=== PATIENT | male | born 1965 | race Caucasian/White ===

== ENCOUNTER 2017-01-14 16:12 | Emergency (ER) | payer MEDICAID ==
[2017-01-14 17:22] LABS: Hematocrit 45.2 % (42.0-52.0); Mean Cell Volume 94.6 fl (78-100); Mean Corpuscular Hemoglobin 29.3 pg (27-31); Mean Platelet Volume 9.9 fl (6.0-9.5); Neutrophil # 2.8 K/mm3 (1.3-6.0); Platelet Count 121 K/mm3 (150-450); Red Blood Count 4.78 M/mm3 (4.7-6.0); Red Cell Distribution Width 18.4 % (11.5-14.0); White Blood Count 4.7 K/mm3 (4.0-10.5)
--- NOTE | 2017-01-14 17:42 | ERNOTE ---
Dyspnea - General Presenting Symptoms: shortness of breath Time Seen by Provider: 01/14/17 17:22 Source: patient Exam Limitations: no limitations - Immun/Allergies/Home Medications Immunizations: IMMUNIZATION HX Immunizations Up to Date Yes History of Influenza Vaccine No Hx Pneumococcal Vaccination No Allergies/Adverse Reactions: Allergies metformin Adverse Reaction (Verified 01/14/17 16:41) Home Medications: HOME MEDICATIONS Acitretin [Soriatane] 25 mg PO DAILY 01/14/17 [Last Taken Unknown] Benztropine Mesylate [Cogentin] 0.5 mg PO BID 01/14/17 [Last Taken Unknown] Furosemide [Lasix] 80 mg PO BID #30 tablet 01/14/17 [Last Taken Unknown] OXcarbazepine [Trileptal] 300 mg PO DAILY 01/14/17 [Last Taken Unknown] Pioglitazone HCl [Actos] 45 mg PO DAILY 01/14/17 [Last Taken Unknown] Potassium Chloride [K-Dur] 20 meq PO DAILY #30 tablet.sa 01/14/17 [Last Taken Unknown] Pravastatin Sodium [Pravachol] 20 mg PO DAILY 01/14/17 [Last Taken Unknown] Ranitidine HCl [Zantac] 150 mg PO BID 01/14/17 [Last Taken Unknown] Ziprasidone HCl [Geodon] 60 mg PO BID 01/14/17 [Last Taken Unknown] predniSONE [Prednisone] 3 tab PO DAILY #12 tab 01/14/17 [Last Taken Unknown] - History of Present Illness Narrative: Patient has a history of COPD and sleep apnea. He states that he is supposed to wear oxygen all the time but usually just wears it at night. Over the last two days he has been wearing it all day though as well as using his breathing treatments more as he was coughing more and got short of breath with coughing, not so much with exertion, denies any fever, mild URI symptoms, has been exposed to URI. He does not wear a CPAP and is still smoking.. 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 Denies: out of meds Modifying Factors - (Improves): Reports: albuterol, oxygen Modifying Factors (Worsens): Reports: coughing, lying down Associated Symptoms-Dyspnea: Reports: cough. Denies: fever/chills, sweating Prior Treatment: Reports: recently seen. Denies: currently on antibiotics Review of Systems - Review of Systems Constitutional: Absent: fever, chills EYE: Absent: vision changes ENT: Present: nose congestion. Absent: ear pain, sore throat Respiratory: Present: See HPI, shortness of breath, cough Cardiology: Absent: chest pain Gastrointestinal/Abdominal: Absent: nausea, vomiting, diarrhea, abdominal pain Genitourinary: Present: no symptoms reported Musculoskeletal: Absent: muscle pain Neurological: Absent: headache, weakness, numbness - Patient's Past Medical History Patient History - Medical: Anxiety, Diabetes Type 2, Depression, Obesity Patient History - Cardiac/Respiratory: COPD, Hyperlipidemia, Home O2 Use, Sleep Apnea Patient History - Cancer: No Hx of Cancer Patient History - Surgical Procedures: Colonoscopy, T & A, ENT - Social History Smoking Status: Current every day smoker Cigarettes Packs Per Day: 1 Have you smoked in the past 12 months: Yes - Immunizations Immunizations Up to Date: Yes Hx Pneumococcal Vaccination: No History of Influenza Vaccine: No Physical Exam - Physical Exam General Appearance: Present: wd/wn, alert, no apparent distress, obese Eye Exam: Normal inspection: bilateral, PERRL: bilateral Ears, Nose, Throat: Present: normal ENT inspection, normal pharynx Neck: Present: normal inspection Respiratory: Present: no respiratory distress, no accessory muscle use, lungs clear, decreased breath sounds Cardiovascular/Chest: Present: regular rate, rhythm, no murmur Gastrointestinal/Abdominal: Present: nondistended, soft Extremity Exam: Present: pedal edema - +1 Neurological Exam: Present: alert, oriented, normal mood/affect, no motor/ sensory deficits Skin Exam: Present: normal color, warm/dry, other - skin changes on both lower legs consistent with stasis dermatitis ED Progress - Results and Orders Patient's Lab Results:: I have reviewed the patient's lab results. - Vital Signs Patient's Vital Signs:: I have reviewed the patient's vital signs. Vital Signs: Vital Signs 01/14/17 01/14/17 01/14/17 16:35 17:08 17:25 Pulse Rate 75 74 77 Respiratory 13 20 Rate Blood Pressure 131/82 103/43 O2 Sat by Pulse 83 L 92 Oximetry - EKG EKG: NSR, RBBB - incomplete, other - no acute changes EKG read: Interp. by me - X-Ray X-Ray #1 X-Ray: chest - venous congestion, cardiomegaly, no definite infiltrate Interpretation: Interp. by me - Progress/Reassessment Chief Complaint: Dyspnea Progress Note-Subjective: 01/14/17 18:45 ABG done at 1liter, O2 sat 89-91% reviewed chart from [place] patient comfortable discussed results with patient and family, will treat for CHF and COPD patient does not go to bed till 03:00, will give lasix po now Departure Clinical Impression: COPD (chronic obstructive pulmonary disease) Qualifiers: COPD type: unspecified COPD Qualified Code(s): J44.9 - Chronic obstructive pulmonary disease, unspecified CHF exacerbation Qualifiers: Congestive heart failure type: unspecified congestive heart failure type Qualified Code(s): I50.9 - Heart failure, unspecified - Departure Disposition: Home self-care Condition: Good Instructions: Chronic Obstructive Pulmonary Disease Exacerbation, [id number] , Heart Failure, [id number] Additional Instructions: increase your lasix to 80mg twice a day take the prednisone, make sure to check your blood sugar as it might be elevated with this use your oxygen at 2liter at all times (except when smoking) and your breathing treatments as needed call your doctor in the morning for a follow up appointment Referrals: Kennedi Farrell MD [Primary Care Provider] - Prescriptions: Furosemide [Lasix] 80 mg PO BID #30 tablet Potassium Chloride [K-Dur] 20 meq PO DAILY #30 tablet.sa predniSONE [Prednisone] 3 tab PO DAILY #12 tab
[2017-01-14 17:48] LABS: Anion Gap 5.8 mmol/L (6.8-13.8); BUN/Creatinine Ratio 14.1 (9.0-21.6); Bilirubin, Total 0.8 mg/dL (0.0-1.1); Ca. Corrected For Albumin 9.1 mg/dL (8.4-10.2); Calcium * 8.6 mg/dL (7.9-10.9); Carbon Dioxide 36.9 mmol/L (24-32.6); Potassium 3.7 mmol/L (3.4-4.6); Total Protein 7.9 gm/dL (6.2-8.2)
--- OUTSIDE RECORDS SUMMARY | 2017-01-14 18:34 | XMS REPORT | Continuity of Care Document ---
:1965 Author Organization [facility] ([facility]) Address [address] [place] [address] Phone [phone] Care Team Providers Name Role Phone Kennedi Farrell Primary Care Provider [phone] Source Comments This disclosure is being made pursuant to the Care Everywhere program, applicable federal and state laws, and may not contain all informaitonavailable regarding this patient.[facility] ([facility]) Active Allergies and Adverse Reactions Allergen Noted Date Severity Reactions Comments Metformin 07/10/2016 Rash Current Medications Prescription Sig. Disp. Refills Start Date End Date Status pioglitazone 45 mg 45 mg. 06/11/2016 Active tablet potassium chloride 20 mEq. 06/16/2016 Active 20 mEq tablet pravastatin 20 mg 20 mg. 06/17/2016 Active tablet ziprasidone 60 mg 60 mg. 06/09/2016 Active capsule furosemide 80 mg 80 mg. 06/16/2016 Active tablet benztropine 0.5 mg 0.5 mg. 06/09/2016 Active tablet ranitidine 150 mg 150 mg. 07/02/2016 Active tablet multivitamin tablet Take 1 tablet Active by mouth daily. albuterol 90 Use 2 Puffs by Active mcg/Actuation inhalation inhaler every 6 hours as needed. OXcarbazepine 300 Take 300 mg by Active mg tablet mouth 2 times daily. TEMOVATE 0.05 % Apply topically 60 g 6 12/18/2016 Active oint ointment 2 times daily. To psoriasis on body on weekends. Do not apply to face acitretin 25 mg Take 1 capsule 30 capsule 3 12/18/2016 Active capsule (25 mg total) by mouth daily. Best absorbed when taken with a fatty meal. calcipotriene Apply topically 60 g 11 12/18/2016 Active (DOVONEX) 0.005 % 2 times daily. topical cream Thin layer to affected sites of psoriasis. clobetasol 0.05 % Apply topically 50 mL 12/18/2016 Active topical solution 2 times daily. Apply nightly x2 weeks then 2-3x/week. Repeat nightly use for 2 weeks with flares. To Scalp only. ketoconazole 2 % Apply topically 15 g 12/18/2016 Active cream 2 times daily. To face hydrocortisone 2.5 Apply BID x2 30 g 11 07/10/2016 Discontinued % cream weeks then BID 7 on Sat/Sun only x2 weeks; repeat 4 week cycle PRN. TEMOVATE 0.05 % Apply topically 60 g 07/10/2016 Discontinued oint ointment 2 times daily. 7 triamcinolone 0.1 % Apply BID to 453.6 g 07/30/2016 Discontinued ointment red, itchy rash 7 until resolved; repeat PRN calcipotriene Apply topically 60 g 11 10/16/2016 Discontinued (DOVONEX) 0.005 % 2 times daily. 7 topical cream Thin layer to affected sites. acitretin 25 mg Take 1 capsule 30 capsule 1 10/16/2016 Discontinued capsule (25 mg total) 7 by mouth daily. Best absorbed when taken with a fatty meal. mupirocin 2 % Apply topically 22 g 0 10/16/2016 Discontinued ointment 2 times daily. 7 ketoconazole 2 % Apply topically 15 g 11 10/16/2016 Discontinued cream 2 times daily. 7 ketoconazole 2 % Apply topically 15 g 12/18/2016 Discontinued cream 2 times daily. 7 To face calcipotriene Apply topically 60 g 12/18/2016 Discontinued (DOVONEX) 0.005 % 2 times daily. 7 topical cream Thin layer to affected sites of psoriasis. clobetasol 0.05 % Apply topically 50 mL 6 12/18/2016 Discontinued topical solution 2 times daily. 7 Apply nightly x2 weeks then 2-3x/week. Repeat nightly use for 2 weeks with flares. To Scalp only. acitretin 25 mg Take 1 capsule 30 capsule 3 12/18/2016 Discontinued capsule (25 mg total) 7 by mouth daily. Best absorbed when taken with a fatty meal. Active Problems Problem Noted Date Plaque psoriasis 10/16/2016 Other seborrheic dermatitis 10/16/2016 Medication monitoring encounter 10/16/2016 Most Recent Encounters Date Type Specialty Providers Description 12/18/2016 Office Visit Pathology Ирина Onofre, CCC-A Dx: Medication monitoring Clement Myers MD encounter Lab Services, [facility] 12/18/2016 Office Visit Dermatology Clement Myers MD Dx: Medication monitoring encounter (Primary Dx) 10/16/2016 Office Visit Dermatology Clement Myers MD Dx: Plaque psoriasis (Primary Dx) Social History Tobacco Use Types Packs/Day Years Used Date Former Smoker Cigarettes 2 20 Quit: 12/18/2011 Smokeless Tobacco: Never Used Alcohol Use Drinks/Week oz/Week Comments No Last Filed Vital Signs Vital Sign Reading Time Taken Blood Pressure - - Pulse - - Temperature - - Respiratory Rate - - Height 1.72 m (5' 7.71") 11/27/1998 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 Weight 105.997 kg (233 lb 10.9 oz) 11/27/1998 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 Body Mass Index 35.83 11/27/1998 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 Oxygen Saturation - - Plan of Care Date Type Specialty Providers Description 03/19/2017 Appointment Dermatology Clement Myers MD Chief Comp: Patient [address] [place] [address] [phone] (Fax) Health Maintenance Due Date Last Done Comments HCV Screening 1965 Hepatitis B Vaccine (1 of 3 - Primary Series) 1965 Tdap Vaccine 1976 MMR Vaccine 1983 Td Vaccine 1983 Colonoscopy 2015 Prostate Cancer Screening 2015 Influenza Vaccine: Seasonal (#1) 06/17/2016 Lipid Disorder Screening 07/10/2021 07/10/2016 Results from Last 3 Months TRIGLYCERIDES (12/18/2016 11:18 AM) Component Value Range Triglycerides 96Comment: 0-150 mg/dL Reference Ranges: Normal:<150 mg/dL Borderline-high:150-199 mg/dL High: 200-499 mg/dL Very high: > yl=625 mg/dL Specimen Blood ALANINE AMINOTRANSFERASE (12/18/2016 11:18 AM) Component Value Range ALT 18Comment: 0-41 U/L The upper limit of normal for alanine aminotransferase (ALT) reference ranges for adults is controversial with some authorities recommending limit as low as 30 U/L for males and 19 U/L for females. Th ere is increased incidence of subclinical liver disease (e.g., early steatohepatitis) in patients with ALT values in the range of 31-41 U/L for males and 20-33 U/L for females. ALT values should alway s be interpreted in conjunction with clinical history, physical examination findings, and, if applicable, data from other diagnostic tests. Specimen Blood ASPARTATE AMINOTRANSFERASE (12/18/2016 11:18 AM) Component Value Range AST 22Comment: 0-40 U/L Adult reference ranges updated on 10/12/13 at 830am Specimen Blood
--- OUTSIDE RECORDS SUMMARY | 2017-01-14 18:34 | XMS REPORT | Continuity of Care Document ---
:1965 Author Organization [facility] [place] [address] Care Team Providers Name Role Phone Unavailable Primary Care Provider Unavailable Source Comments This disclosure is being made pursuant to the [employer] program and maynot contain all information available regarding this patient.[facility] Active Allergies and Adverse Reactions Not on File Current Medications Be aware that medications may not be up to date as of this document. Alwaysverify current medications with the patient. Not on file Active Problems Not on file Social History Tobacco Use Types Packs/Day Years Used Date Never Assessed Plan of Care Health Maintenance Due Date Last Done Comments Retired-Pertussis Vaccine Adult 1984 Retired-Tetanus Vaccine Adult 1984 Colonoscopy 2015 Well Adult Visit 2015 Retired-INFLUENZA VACCINE 07/18/2015 Results from Last 3 Months Not on file
[2017-01-14] MEDS ORDERED: FUROSEMIDE 40 MG TABLET PO ONE (18:42)
[2017-01-14] MEDS ORDERED: predniSONE 20 MG TABLET PO ONE (18:43)
[2017-01-14] MEDS ORDERED: predniSONE 20 MG TABLET ONE (18:50)
[2017-01-14] MEDS ORDERED: FUROSEMIDE 40 MG TABLET ONE (18:50)
[2017-01-14 18:53] VITALS: BP 93/63
== END 2017-01-14 19:02 | disposition home or self-care (01) ==
LOC: ER 16:12
DX: J44.9 Chronic obstructive pulmonary disease, unspecified (principal); I50.9 Heart failure, unspecified; E11.9 Type 2 diabetes mellitus without complications; Z72.0 Tobacco use; E78.5 Hyperlipidemia, unspecified